=== PATIENT | male | born 1945 | race Caucasian/White ===

== ENCOUNTER → 2017-03-01 | Outpatient (CLI) | payer MEDICARE ==
[~2017-03-01] MED LIST: ALPR0.5T6 PO; ALPR2TAB5 PO; ASPI-515 PO; ATOR20TA9 PO; DIAZ5TAB PO; DIPHEN/ATROPINE PO; DULO30CA2 PO; EYE SUPPLEMENT PO; GABA300C10 PO; GABA800T2 PO; HYDR-3245 PO; IRON PO; METO25TA35 PO; MORPHINE PO; NAPR500T4 PO; SIMV40TA3 PO; VENL75TA PO; VISION FORMULA PO; ZOLP10TA PO
[2017-03-01 14:46] LABS: BASOPHILS # (AUTO) 0.09 x10^3/uL (0-0.1); BASOPHILS % (AUTO) 1 % (0-1); EOSINOPHILS # (AUTO) 0.38 x10^3/uL (0-0.4); EOSINOPHILS % (AUTO) 3 % (1-7); LYMPHOCYTES # (AUTO) 2.58 x10^3/uL (1-3.4); LYMPHOCYTES % (AUTO) 21 % (22-44); MD NO; MEAN CORPUSCULAR HEMOGLOBIN 33.9 pg (27.5-34.5); MEAN CORPUSCULAR HGB CONC 32.8 g/dL (33.2-36.2); MEAN CORPUSCULAR VOLUME 103.3 fL (81-97); MEAN PLATELET VOLUME 8.7 fL (7.4-10.4); MONOCYTES # (AUTO) 1.06 x10^3/uL (0.2-0.8); MONOCYTES % (AUTO) 9 % (2-9); NEUTROPHILS # (AUTO) 8.01 x10^3/uL (1.8-6.8); NEUTROPHILS % (AUTO) 66 % (42-75); PLATELET COUNT 268 x10^3/uL (130-400); RED BLOOD COUNT 4.19 x10^6/uL (4.38-5.82); RED CELL DISTRIBUTION WIDTH 13.2 % (9.4-14.8)
[2017-03-01 14:53] LABS: INTERNATIONAL NORMALIZED RATIO 0.94 (0.93-1.1); PROTHROMBIN TIME 9.7 Seconds (9.6-11.5)
[2017-03-01 14:56] LABS: ALANINE AMINOTRANSFERASE 32 U/L (12-78); ALBUMIN 3.9 g/dL (3.4-5.0); ANION GAP 8 mmol/L (5-15); CALCIUM 8.6 mg/dL (8.5-10.1); CHLORIDE 107 mmol/L (98-107); CREATININE 1.46 mg/dL (0.7-1.3)
[2017-03-01 14:58] LABS: ALKALINE PHOSPHATASE 83 U/L (45-117); BILIRUBIN,TOTAL 0.5 mg/dL (0.2-1.0); TOTAL PROTEIN 7.8 g/dL (6.4-8.2)
== END | disposition home or self-care (01) ==
LOC: STAR 12:04
PROVIDERS: ATTEND Neurological Surgery
DX: Z01.818 Encounter for other preprocedural examination (principal); R91.8 Other nonspecific abnormal finding of lung field; I10 Essential (primary) hypertension; M19.90 Unspecified osteoarthritis, unspecified site; Z79.899 Other long term (current) drug therapy
CPT/HCPCS: 36415; 71020; 80053; 85025; 85610; 85730; 93005

== ENCOUNTER → 2017-03-01 | Outpatient (CLI) | payer MEDICARE | LOC: CARD 12:09 | PROVIDERS: ATTEND Neurological Surgery | DX: J98.8 Other specified respiratory disorders (principal); R94.31 Abnormal electrocardiogram [ECG] [EKG] | CPT/HCPCS: 94060; 94726; 94729 ==

== ENCOUNTER → 2017-03-02 | Outpatient (CLI) | payer MEDICARE ==
[~2017-03-02] MED LIST changes: +REGADENOSON 0.4 MG/5 ML SYRINGE ONE
== END | disposition home or self-care (01) ==
LOC: RAD 07:52
PROVIDERS: ATTEND Neurological Surgery
DX: R06.02 Shortness of breath (principal); R94.31 Abnormal electrocardiogram [ECG] [EKG]; J98.9 Respiratory disorder, unspecified
CPT/HCPCS: 78452; 93017; A9502; J2785

== ENCOUNTER → 2017-03-04 | Outpatient (CLI) | payer MEDICARE ==
[~2017-03-04] MED LIST changes: -REGADENOSON 0.4 MG/5 ML SYRINGE ONE
[2017-03-04 08:27] LABS: BASOPHILS # (AUTO) 0.05 x10^3/uL (0-0.1); BASOPHILS % (AUTO) 1 % (0-1); EOSINOPHILS % (AUTO) 6 % (1-7); LYMPHOCYTES # (AUTO) 1.93 x10^3/uL (1-3.4); LYMPHOCYTES % (AUTO) 18 % (22-44); MD NO; MEAN CORPUSCULAR HEMOGLOBIN 33.8 pg (27.5-34.5); MEAN CORPUSCULAR HGB CONC 33.6 g/dL (33.2-36.2); MEAN CORPUSCULAR VOLUME 100.6 fL (81-97); MEAN PLATELET VOLUME 8.3 fL (7.4-10.4); MONOCYTES # (AUTO) 1.32 x10^3/uL (0.2-0.8); MONOCYTES % (AUTO) 12 % (2-9); NEUTROPHILS # (AUTO) 6.86 x10^3/uL (1.8-6.8); NEUTROPHILS % (AUTO) 64 % (42-75); PLATELET COUNT 271 x10^3/uL (130-400); RED BLOOD COUNT 3.84 x10^6/uL (4.38-5.82)
== END ==
LOC: LAB 08:00
PROVIDERS: ATTEND Neurological Surgery
DX: J44.9 Chronic obstructive pulmonary disease, unspecified (principal)
CPT/HCPCS: 36415; 85025; 86141

== ENCOUNTER 2017-03-07 07:30 | Inpatient (IN) | payer MEDICARE ==
[~2017-03-07] VITALS: Ht 177.8 cm; Wt 70.0 kg
[2017-03-21] MEDS ORDERED: EPINEPHRINE 1 MG/ML, 1ML ONE (06:50)
[2017-03-21] MEDS ORDERED: BACITRACIN 50,000 UNIT ONE (06:50)
[2017-03-21] MEDS ORDERED: THROMBIN 20,000 UNIT VIAL TP ONE (06:50)
[2017-03-21] MEDS ORDERED: BUPIVACAINE/PF 0.5% ONE (06:50)
[2017-03-21] MEDS ORDERED: MORP15TA3 PO (10:19)
[2017-03-21 10:39] LABS: BASOPHILS # (AUTO) 0.08 x10^3/uL (0-0.1); BASOPHILS % (AUTO) 1 % (0-1); EOSINOPHILS # (AUTO) 0.49 x10^3/uL (0-0.4); EOSINOPHILS % (AUTO) 5 % (1-7); LYMPHOCYTES # (AUTO) 2.08 x10^3/uL (1-3.4); LYMPHOCYTES % (AUTO) 21 % (22-44); MD NO; MEAN CORPUSCULAR HEMOGLOBIN 33.9 pg (27.5-34.5); MEAN CORPUSCULAR HGB CONC 33.4 g/dL (33.2-36.2); MEAN CORPUSCULAR VOLUME 101.6 fL (81-97); MEAN PLATELET VOLUME 8.5 fL (7.4-10.4); MONOCYTES # (AUTO) 1.03 x10^3/uL (0.2-0.8); MONOCYTES % (AUTO) 10 % (2-9); NEUTROPHILS # (AUTO) 6.35 x10^3/uL (1.8-6.8); NEUTROPHILS % (AUTO) 63 % (42-75); PLATELET COUNT 287 x10^3/uL (130-400); RED BLOOD COUNT 3.95 x10^6/uL (4.38-5.82); RED CELL DISTRIBUTION WIDTH 13.3 % (9.4-14.8)
[2017-03-21] MEDS ORDERED: LACTATED RINGERS 1,000 ML IV SCH (10:41)
[2017-03-21] MEDS ORDERED: MIDAZOLAM 1 MG/ML, 2ML ONE (11:36)
[2017-03-21] MEDS ORDERED: FENTANYL PF 250 MCG/5ML ONE (11:37)
[2017-03-21] MEDS ORDERED: PROPOFOL 10 MG/ML, 20ML ONE (11:40)
[2017-03-21] MEDS ORDERED: SUCCINYLCHOLINE 20 MG/ML, 10ML ONE (11:40)
[2017-03-21] MEDS ORDERED: LIDOCAINE GEL 2%, 5ML ONE (11:40)
[2017-03-21] MEDS ORDERED: PROPOFOL 50 ML ONE ×3 (11:40→15:05)
[2017-03-21] MEDS ORDERED: LIDOCAINE-MPF 2% ,5ML ONE ×2 (11:40→15:10)
[2017-03-21] MEDS ORDERED: DEXAMETHASONE 4 MG/ML, 1ML ONE (11:40)
[2017-03-21] MEDS ORDERED: ONDANSETRON 2MG/ML, 2ML ONE (11:40)
[2017-03-21] MEDS ORDERED: CEFAZOLIN 1,000 MG ONE (11:40)
[2017-03-21] MEDS ORDERED: PHENYLEPHRINE 10 MG/ML ONE (13:11)
[2017-03-21] MEDS ORDERED: EPHEDRINE 50 MG/ML, 1ML ONE (13:11)
[2017-03-21] MEDS ORDERED: KETAMINE 10 MG/ML, 20ML ONE (14:39)
[2017-03-21] MEDS ORDERED: ONDANSETRON 2MG/ML, 2ML IVPush PRN (16:00)
[2017-03-21] MEDS ORDERED: ACETAMINOPHEN 325 MG TABLET PO PRN ×2 (16:00→19:30)
[2017-03-21] MEDS ORDERED: MEPERIDINE/PF 25MG/0.5ML IVPush PRN (16:00)
[2017-03-21] MEDS ORDERED: HYDROmorphone 1 MG/ML, 1ML IV PRN (16:00)
[2017-03-21] MEDS ORDERED: PROMETHAZINE 25 MG/ML, 1ML IV PRN (16:00)
[2017-03-21] MEDS ORDERED: MIDAZOLAM 1 MG/ML, 2ML IV PRN (16:00)
[2017-03-21] MEDS ORDERED: hydrALAzine 20 MG/ML, 1ML IV PRN (16:00)
[2017-03-21] MEDS ORDERED: LABETALOL 5MG/ML, 20ML IV PRN (16:00)
[2017-03-21] MEDS ORDERED: LORazepam 2 MG/ML, 1ML IVPush PRN (16:00)
[2017-03-21] MEDS ORDERED: FENTANYL PF 100 MCG/2ML IV PRN (16:00)
[2017-03-21] MEDS ORDERED: DIAZEPAM 5 MG/ML, 2ML IVPush PRN (16:00)
[2017-03-21] MEDS ORDERED: OXYcodone 5 MG/5 ML ORAL.SOL UDC PO PRN (16:00)
[2017-03-21] MEDS ORDERED: ALBUTEROL/IPRATROPIUM 2.5MG/0.5MG, 3 ML NPPB PRN (16:00)
[2017-03-21] MEDS ORDERED: HYDROmorphone 2 MG/ML, 1ML ONE (16:29)
[2017-03-21] MEDS ORDERED: OXYcodone 5 MG/5 ML ORAL.SOL UDC ONE (18:26)
[2017-03-21] MEDS ORDERED: ACETAMINOPHEN 650 MG/20.3 ML UDC ONE (18:26)
[2017-03-21 19:15] VITALS: BP 127/65
[2017-03-21] MEDS ORDERED: DIPHENHYDRAMINE 50 MG/ML, 1ML IM PRN (19:30)
[2017-03-21] MEDS ORDERED: ZOLPIDEM 10MG TABLET PO PRN (19:30)
[2017-03-21] MEDS ORDERED: BISACODYL 10 MG SUPP PR PRN (19:30)
[2017-03-21] MEDS ORDERED: ACETAMINOPHEN 650 MG SUPP PR PRN (19:30)
[2017-03-21] MEDS ORDERED: MAGNESIUM HYDROXIDE 8%, 30ML UDC PO PRN (19:30)
[2017-03-21] MEDS ORDERED: DIPHENHYDRAMINE 50 MG CAPSULE PO PRN (19:30)
[2017-03-21] MEDS ORDERED: PROMETHAZINE 25 MG/ML, 1ML IM PRN (19:30)
[2017-03-21] MEDS ORDERED: HYDROcodone/APAP 5/325 TABLET PO PRN (19:30)
[2017-03-21] MEDS ORDERED: OXYcodone IR 5MG TABLET PO PRN (19:30)
[2017-03-21] MEDS ORDERED: ONDANSETRON 2MG/ML, 2ML IV PRN (19:30)
[2017-03-21] MEDS ORDERED: DIPHENHYDRAMINE 50 MG/ML, 1ML IVPush PRN (19:30)
[2017-03-21] MEDS ORDERED: morphine SULFATE 10 MG/ML, 1ML IV PRN (19:30)
[2017-03-21] MEDS: CEFAZOLIN PMX 1GM/50ML 50 ML IVPB SCH (20:00)
[2017-03-21] MEDS ORDERED: METHOCARBAMOL 1,000 MG in DEXTROSE 5% 100 ML IV ONE (20:00)
[2017-03-21] MEDS: NS + 20MEQ KCL 1,000 ML IV SCH (20:00)
[2017-03-21] MEDS: DIPHENOXYLATE/ATROPINE TABLET PO SCH (21:07)
[2017-03-21] MEDS: DIAZEPAM 5 MG TABLET PO SCH (21:07)
[2017-03-21] MEDS: ATORVASTATIN 20 MG TABLET PO SCH (21:08)
[2017-03-21] MEDS: GABAPENTIN 400 MG CAPSULE PO SCH (21:08)
[2017-03-22 00:07] VITALS: BP 108/67
[2017-03-22] MEDS: HYDROcodone/APAP 10/325 MG TABLET PO PRN ×5 (01:30→23:04)
[2017-03-22] MEDS: CEFAZOLIN PMX 1GM/50ML 50 ML IVPB SCH (03:51)
[2017-03-22 04:05] VITALS: BP 95/57
[2017-03-22] MEDS: METHOCARBAMOL 750 MG in DEXTROSE 5% 100 ML IV SCH ×3 (04:30→23:04)
[2017-03-22] MEDS: NS + 20MEQ KCL 1,000 ML IV SCH ×2 (08:03→20:06)
[2017-03-22 08:08] VITALS: BP 101/59
[2017-03-22] MEDS: SENNA/DOCUSATE TABLET PO SCH (08:28)
[2017-03-22] MEDS: GABAPENTIN 400 MG CAPSULE PO SCH ×3 (08:29→20:45)
[2017-03-22] MEDS: VENLAFAXINE 75MG TABLET PO SCH (08:29)
[2017-03-22] MEDS: SODIUM CHLORIDE FLUSH 10ML SYR IVF SCH ×2 (08:35→20:45)
[2017-03-22] MEDS: DIPHENOXYLATE/ATROPINE TABLET PO SCH ×3 (08:35→20:46)
[2017-03-22] MEDS: DIAZEPAM 5 MG TABLET PO SCH ×2 (08:35→20:45)
[2017-03-22 12:55] VITALS: BP 108/64
[2017-03-22] MEDS ORDERED: METHOCARBAMOL 750 MG TABLET ONE (14:22)
[2017-03-22] MEDS: ATORVASTATIN 20 MG TABLET PO SCH (20:45)
[2017-03-22 20:48] VITALS: BP 110/57
[2017-03-23 02:48] VITALS: BP 110/60
[2017-03-23] MEDS: HYDROcodone/APAP 10/325 MG TABLET PO PRN ×5 (02:59→23:24)
[2017-03-23] MEDS: METHOCARBAMOL 750 MG in DEXTROSE 5% 100 ML IV SCH (07:30)
[2017-03-23 07:34] VITALS: BP 109/62
[2017-03-23] MEDS: NS + 20MEQ KCL 1,000 ML IV SCH ×2 (08:09→19:32)
[2017-03-23] MEDS: SENNA/DOCUSATE TABLET PO SCH (09:00)
[2017-03-23] MEDS: DIPHENOXYLATE/ATROPINE TABLET PO SCH ×3 (09:00→21:01)
[2017-03-23] MEDS ORDERED: METHOCARBAMOL 500 MG TABLET PO PRN (09:00)
[2017-03-23] MEDS: DIAZEPAM 5 MG TABLET PO SCH ×2 (09:00→21:00)
[2017-03-23] MEDS: VENLAFAXINE 75MG TABLET PO SCH (09:01)
[2017-03-23] MEDS: TAMSULOSIN 0.4 MG CAP.ER.24H PO SCH (09:02)
[2017-03-23] MEDS: GABAPENTIN 400 MG CAPSULE PO SCH ×3 (09:02→21:01)
[2017-03-23] MEDS: SODIUM CHLORIDE FLUSH 10ML SYR IVF SCH ×2 (10:14→21:00)
[2017-03-23 13:36] VITALS: BP 95/50
[2017-03-23 19:35] VITALS: BP 136/74
[2017-03-23] MEDS: ATORVASTATIN 20 MG TABLET PO SCH (21:01)
[2017-03-24 00:59] VITALS: BP 98/57
[2017-03-24] MEDS ORDERED: METHOCARBAMOL 750 MG TABLET PO SCH (06:00)
[2017-03-24 06:50] VITALS: BP 126/64
[2017-03-24] MEDS: DIAZEPAM 5 MG TABLET PO SCH (07:51)
[2017-03-24] MEDS: VENLAFAXINE 75MG TABLET PO SCH (07:52)
[2017-03-24] MEDS: GABAPENTIN 400 MG CAPSULE PO SCH (07:52)
[2017-03-24] MEDS: TAMSULOSIN 0.4 MG CAP.ER.24H PO SCH (07:53)
[2017-03-24] MEDS: DIPHENOXYLATE/ATROPINE TABLET PO SCH (07:53)
[2017-03-24] MEDS: SENNA/DOCUSATE TABLET PO SCH (07:57)
[2017-03-24] MEDS: NS + 20MEQ KCL 1,000 ML IV SCH (08:15)
[2017-03-24] MEDS: SODIUM CHLORIDE FLUSH 10ML SYR IVF SCH (09:00)
[2017-03-24] MEDS ORDERED: HYDR-3307 PO (11:25)
[2017-03-24] MEDS ORDERED: METH500T97 PO (11:25)
[2017-03-24] MEDS ORDERED: TAMS-11 PO (11:26)
[2017-03-24] MEDS: HYDROcodone/APAP 10/325 MG TABLET PO PRN (12:55)
[2017-03-24 15:00] VITALS: BP 119/63
[2017-03-25] MEDS ORDERED: ENOXAPARIN 30 MG/0.3 ML SQ SCH (08:00)
== END 2017-03-24 16:46 | DRG 457 ==
LOC: ORIP 03-21 09:35 → 4NOR 03-21 18:56
PROVIDERS: ADMIT Neurological Surgery; ATTEND Neurological Surgery
PROC: 0SB20ZZ Excision of Lumbar Vertebral Disc, Open Approach (ICD-10-PCS; 2017-03-21)
PROC: 01NB0ZZ Release Lumbar Nerve, Open Approach (ICD-10-PCS; 2017-03-21)
PROC: 0SP004Z Removal of Internal Fixation Device from Lumbar Vertebral Joint, Open Approach (ICD-10-PCS; 2017-03-21)
PROC: 0SG10AJ Fusion of 2 or more Lumbar Vertebral Joints with Interbody Fusion Device, Posterior Approach, Anterior Column, Open Approach (ICD-10-PCS; principal; 2017-03-21 12:30)
DX: M41.86 Other forms of scoliosis, lumbar region (principal); T84.216A Breakdown (mechanical) of internal fixation device of vertebrae, initial encounter; M43.10 Spondylolisthesis, site unspecified; M48.061 Spinal stenosis, lumbar region without neurogenic claudication; M54.16 Radiculopathy, lumbar region; Y79.2 Prosthetic and other implants, materials and accessory orthopedic devices associated with adverse incidents; M43.16 Spondylolisthesis, lumbar region
CPT/HCPCS: 36415; 72100; 85025; 86850; 86900; C1713; C1776; J0171; J0690; J1100; J1170; J2250; J2405; J2704; J3010; J3480; J3490; C1762; J0330; J2370; J2800; J7120

== ENCOUNTER → 2018-06-07 | Outpatient (CLI) | payer MEDICARE ==
[~2018-06-07] MED LIST changes: +ATOR20TA37 PO; -ATOR20TA9 PO; -GABA800T2 PO; +GABA800T5 PO; +HYDR-3307 PO; +METH500T97 PO; +MORP15TA3 PO; +NAPR-685 PO; -NAPR500T4 PO; +TAMS-11 PO
== END | disposition home or self-care (01) ==
LOC: CFH 10:30
PROVIDERS: ATTEND Family Medicine
DX: Z12.2 Encounter for screening for malignant neoplasm of respiratory organs (principal); J43.8 Other emphysema; J84.10 Pulmonary fibrosis, unspecified; J92.9 Pleural plaque without asbestos; I25.10 Atherosclerotic heart disease of native coronary artery without angina pectoris; I70.0 Atherosclerosis of aorta; F17.210 Nicotine dependence, cigarettes, uncomplicated
CPT/HCPCS: 76706; G0297

== ENCOUNTER 2018-08-14 19:33 | Emergency (ER) | payer MEDICARE, MEDICAID ==
[~2018-08-14] VITALS: Ht 175.3 cm; Wt 59.0 kg
[2018-08-14] MEDS ORDERED: ONDANSETRON 2MG/ML, 2ML IVPush ONE (20:00)
[2018-08-14] MEDS ORDERED: SODIUM CHLORIDE FLUSH 10ML SYR IVF ONE (20:00)
[2018-08-14 20:23] LABS: BASOPHILS % (AUTO) 0 % (0-1); EOSINOPHILS # (AUTO) 0.01 x10^3/uL (0-0.4); EOSINOPHILS % (AUTO) 0 % (1-7); LYMPHOCYTES # (AUTO) 1.05 x10^3/uL (1-3.4); LYMPHOCYTES % (AUTO) 7 % (22-44); MD NO; MEAN CORPUSCULAR HEMOGLOBIN 34.3 pg (27.5-34.5); MEAN CORPUSCULAR HGB CONC 32.5 g/dL (33.2-36.2); MEAN CORPUSCULAR VOLUME 105.5 fL (81-97); MEAN PLATELET VOLUME 8.5 fL (7.4-10.4); MONOCYTES # (AUTO) 0.28 x10^3/uL (0.2-0.8); MONOCYTES % (AUTO) 2 % (2-9); NEUTROPHILS # (AUTO) 13.53 x10^3/uL (1.8-6.8); NEUTROPHILS % (AUTO) 91 % (42-75); PLATELET COUNT 223 x10^3/uL (130-400); RED BLOOD COUNT 4.58 x10^6/uL (4.38-5.82); RED CELL DISTRIBUTION WIDTH 13.7 % (9.4-14.8)
[2018-08-14 20:32] LABS: ALBUMIN 3.9 g/dL (3.4-5.0); ANION GAP 10 mmol/L (5-15); CALCIUM 9.1 mg/dL (8.5-10.1); CHLORIDE 109 mmol/L (98-107); CREATININE 1.83 mg/dL (0.7-1.3)
[2018-08-14] MEDS ORDERED: ONDANSETRON 2MG/ML, 2ML ONE (20:36)
[2018-08-14] MEDS ORDERED: MORPHINE SULFATE 4 MG/ML, 1ML ONE ×2 (20:36→21:50)
[2018-08-14] MEDS: MORPHINE SULFATE 4 MG/ML, 1ML IVPush PRN ×2 (20:40→21:52)
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
[2018-08-14] MEDS ORDERED: OMNIPAQUE 350 MG/ML, 75ML BOTTLE ONE (21:10)
[2018-08-14] MEDS ORDERED: SODIUM CHLORIDE 0.9% 1,000ML IVBOLUS ONE (21:30)
--- NOTE | 2018-08-14 21:34 | NUR ---
PT AT CT
[2018-08-14 21:58] VITALS: BP 163/77
--- NOTE | 2018-08-14 21:59 | NUR ---
PT REMEDICATED FOR PAIN. FAMILY AT BEDSIDE. CALL LIGHT IN REACH
--- NOTE | 2018-08-14 22:30 | NUR ---
REPORT TO [facility]. FAMILY UPDATED
--- NOTE | 2018-08-14 22:40 | NUR ---
TRANSPORT SET UP THROUGH [facility]. DR GIRALDO ACCEPTING AT [facility].
== END 2018-08-14 23:19 | disposition short-term general hospital (02) ==
LOC: ED 22:36
DX: S42.021A Displaced fracture of shaft of right clavicle, initial encounter for closed fracture (principal); S22.050A Wedge compression fracture of T5-T6 vertebra, initial encounter for closed fracture; M54.9 Dorsalgia, unspecified; G89.29 Other chronic pain; J44.9 Chronic obstructive pulmonary disease, unspecified; F17.200 Nicotine dependence, unspecified, uncomplicated; W17.89XA Other fall from one level to another, initial encounter; Y93.89 Activity, other specified; Y92.009 Unspecified place in unspecified non-institutional (private) residence as the place of occurrence of the external cause; Y99.8 Other external cause status
CPT/HCPCS: 36415; 70450; 71260; 72072; 72110; 72125; 73030; 73630; 80048; 82040; 85025; 96374; 96375; 96376; 99291; J2270; J2405; J7030; Q9967